=== PATIENT | female | born 1970 | race Caucasian/White ===

== ENCOUNTER 2025-03-31 16:12 | Outpatient (OUT) | payer OTHER, SELFPAY ==
--- NOTE | 2025-03-31 | MM_ITS ---
Patient Name: LIANA GILL MR#: [id number] : 1970 Exam Date: 03/31/2025 Ordering Doctor: JENNYFER DAVIS RADIOLOGY REPORT PROCEDURE: MM TOMOSYNTHESIS SCREENING BI COMPARISON: MM TOMOSYNTHESIS SCREENING BI, 03/10/2024. MM TOMOSYNTHESIS SCREENING BI, 03/06/2023. MG MAMM GERALDINE SCRN W CAD DIG, 02/13/2016. MG MAMM GERALDINE SCRN W CAD DIG, 02/07/2015. INDICATIONS: screening mammogram for malignant neoplasm Calculator Name NCI Breast Cancer Risk Assessment Tool 5 Year Breast Cancer Risk 1.30% Lifetime Breast Cancer Risk 9.30% Personal Breast Cancer No Personal Ovarian Cancer No Treatments None Family Cancers None LOCATION: [facility] BREAST COMPOSITION: The breasts are extremely dense, which lowers the sensitivity of mammography. FINDINGS: RIGHT BREAST: No significant suspicious finding. Similar focal asymmetry is present . LEFT BREAST: No significant suspicious finding. Similar focal asymmetry is present. DIAGNOSTIC CATEGORY 2--BENIGN FINDING. NO CHANGE FROM COMPARISON. RECOMMENDATIONS: ROUTINE MAMMOGRAM AND CLINICAL EVALUATION IN 12 MONTHS. Dictated by: William Thornton MD on 04/01/2025 at 11:17 Approved by: William Thornton MD on 04/01/2025 at 11:32
== END 2025-03-31 16:13 | disposition home or self-care (01) ==
LOC: MAMMO 16:12
PROVIDERS: PCP Internal Medicine; Visit Provider Advanced Practice Midwife
DX: Z12.31 Encounter for screening mammogram for malignant neoplasm of breast (principal)
CPT/HCPCS: 77063; 77067